=== PATIENT | female | born 1975 | race Two or more races ===

== ENCOUNTER → 2025-01-28 | Outpatient (CLI) | payer OTHER, SELFPAY ==
--- NOTE | 2025-01-28 08:30 | XR_ITS ---
Examination: Breast ultrasound, unilateral, left Date and time of exam: January 28, 2025 0848 hours Comparison 04/28/2024 INDICATIONS: Mammogram 04/28/2024 focal asymmetry left MLO view upper left breast Technique: Real-time rod scale ultrasonographic imaging performed left breast including all 4 quadrants as well as nipple retroareolar and axillary region. Findings: 12:00 nodule circumscribed 12 x 9 mm 6:00 nodule circumscribed 11 x 8 mm 8:00 nodule circumscribed 5 x 3 mm 11:00 nodule circumscribed 8 x 8 mm Retroareolar cyst 4 x 4 millimeter IMPRESSION: BI-RADS Category 3: Probably benign findings One additional 6 month left breast sonogram follow-up strongly advised to document stability of multiple solid nodules described above
--- NOTE | 2025-01-28 09:30 | XR_ITS ---
Examination: Diagnostic digital mammography, unilateral, left Computer aided detection 3-D breast Tomosynthesis, unilateral Date and time of exam: January 28, 2025 0903 hours INDICATIONS: Outside mammogram January 17, 2024 11 mm focal asymmetry upper inner left breast Technique: Nonmagnified MLO, CC views of the left breast have been obtained, reconstructed from 3-D Tomosynthesis images. R2 computer aided detection program utilized for evaluation of suspicious masses and/or abnormal calcifications. 3-D Tomosynthesis images obtained. Findings: The breast is heterogeneously dense, which may obscure small masses The breast architecture is nodular The left breast sonogram today demonstrates nodules in the 12:00 6:00 8:00 and 11:00 position On this study no suspicious masses are depicted Impression: BI-RADS category 3: Probably benign findings One additional 6 month left mammogram follow-up is needed
== END | disposition home or self-care (01) ==
LOC: CDIM 08:28
PROVIDERS: PCP Family Medicine; Referring Provider Nurse Practitioner; Visit Provider Nurse Practitioner
DX: R92.8 Other abnormal and inconclusive findings on diagnostic imaging of breast (principal); R92.332 Mammographic heterogeneous density, left breast; N63.25 Unspecified lump in the left breast, overlapping quadrants; N63.22 Unspecified lump in the left breast, upper inner quadrant; N63.24 Unspecified lump in the left breast, lower inner quadrant; N60.02 Solitary cyst of left breast
CPT/HCPCS: 76641; 77061; 77065; G0279